=== PATIENT | male | born 1945 | race Hispanic/Latino ===

== ENCOUNTER → 2022-03-14 | Outpatient (CLI) | payer OTHER | END | disposition home or self-care (01) | LOC: RAH 09:54 | PROVIDERS: ATTEND Internal Medicine Cardiovascular Disease | DX: Z13.6 Encounter for screening for cardiovascular disorders (principal); I51.5 Myocardial degeneration | CPT/HCPCS: 75571 ==

== ENCOUNTER → 2022-04-02 | Outpatient (CLI) | payer OTHER ==
[~2022-04-02] VITALS: Ht 177.8 cm; Wt 101.2 kg
[~2022-04-02] MED LIST: REGADENOSON 0.4 MG/5 ML PF SYG IVP SCH
== END | disposition home or self-care (01) ==
LOC: SHCH 09:25
PROVIDERS: ATTEND Internal Medicine Cardiovascular Disease
DX: I49.1 Atrial premature depolarization (principal); R07.9 Chest pain, unspecified
CPT/HCPCS: 78452; 93017; 96374; A9500 ×2; J2785

== ENCOUNTER → 2022-05-03 | Outpatient (CLI) | payer OTHER ==
[~2022-05-03] MED LIST changes: +IOHEXOL 350 MG/ML 100ML INFUS..BTL IV ONE; +IOHEXOL-350 50ML VIAL IV ONE; -REGADENOSON 0.4 MG/5 ML PF SYG IVP SCH
== END | disposition home or self-care (01) ==
LOC: RAH 09:43 → EDUNIT# 05-10 10:00
PROVIDERS: ATTEND Internal Medicine Cardiovascular Disease
DX: I70.1 Atherosclerosis of renal artery (principal); I70.203 Unspecified atherosclerosis of native arteries of extremities, bilateral legs; I70.0 Atherosclerosis of aorta; I70.8 Atherosclerosis of other arteries
CPT/HCPCS: 75635; Q9967 ×2

== ENCOUNTER 2022-06-18 08:59 | Inpatient (IN) | payer OTHER ==
[2022-06-14 11:29] LABS: BASOPHILS % (AUTO) 0.6 % (0.0-5.0); EOSINOPHILS % (AUTO) 2.2 % (0.0-8.0); HEMATOCRIT 42.1 % (42-54); LYMPHOCYTES % (AUTO) 19.9 % (21.0-51.0); MEAN CORPUSCULAR HEMOGLOBIN 30.9 pg (27.0-33.0); MEAN CORPUSCULAR HGB CONC 33.7 g/dL (32.0-36.0); MEAN CORPUSCULAR VOLUME 91.7 fL (79-99); NEUTROPHILS % (AUTO) 68.8 % (40.0-77.0); PLATELET COUNT (AUTO) 303 K/uL (130-400); RED BLOOD CELL COUNT(AUTO) 4.59 MIL/uL (4.50-6.20); RED CELL DISTRIBUTION WIDTH 12.5 % (11.0-15.5); WHITE BLOOD COUNT (AUTO) 8.1 K/uL (4.8-10.8)
[2022-06-14 11:45] LABS: CREATININE 1.4 mg/dL (0.5-1.5); POTASSIUM 4.3 mmol/L (3.5-5.1)
[2022-06-14 12:08] LABS: INR 0.97 (0.85-1.15); PROTHROMBIN TIME 10.6 SEC (9.6-11.6)
[2022-06-14 12:09] LABS: PARTIAL THROMBOPLASTIN TIME 27.9 SEC (26.3-35.5)
[2022-06-14 12:14] LABS: APPEARANCE,URINE CLEAR (CLEAR); BILIRUBIN,URINE NEGATIVE (NEGATIVE); COLOR,URINE YELLOW (YELLOW); GLUCOSE, URINE (UA) NEGATIVE (NEGATIVE); KETONES,URINE NEGATIVE (NEGATIVE); LEUKOCYTE ESTERASE ,URINE NEGATIVE (NEGATIVE); NITRATE,URINE NEGATIVE (NEGATIVE); OCCULT BLOOD,URINE NEGATIVE (NEGATIVE); PROTEIN,URINE NEGATIVE (NEGATIVE); UROBILINOGEN,URINE 0.2 mg/dL (0.2-1.0)
[2022-06-14 12:47] LABS: B-TYPE NATRIURETIC PEPTIDE 30 pg/mL (0-100)
[2022-06-15 13:20] VITALS: BP 136/67
[2022-06-18] VITALS (10 sets, daily range): BP systolic 109–130; BP diastolic 64–86
[~2022-06-18] VITALS: Ht 182.9 cm; Wt 95.3 kg
[~2022-06-18 08:59] MED LIST changes: +0.9%NACL 1000ML 1,000 ML IV SCH; +AMLO-258 PO; +CILO100T PO; +CINAMMON PO; +FISH12002 PO; +GLIP10TA9 PO; +INSU100V52 SQ; -IOHEXOL 350 MG/ML 100ML INFUS..BTL IV ONE; -IOHEXOL-350 50ML VIAL IV ONE; +LEVO75TA10 PO; +LOSA100T58 PO; +METF-446 PO; +METO-408 PO; +MV-M1TAB20 PO; +SPIR1TAB4 PO; +TIME SLEEP AID PO
[2022-06-18] MEDS ORDERED: DEXTROSE 50%-WATER 50 ML DISP.SYRIN IV ONE (09:26)
[2022-06-18] MEDS ORDERED: DEXTROSE 5 %-0.45 % NACL 1,000 ML IV SCH (10:00)
[2022-06-18] MEDS ORDERED: LIDOCAINE HCL 1% 20 ML VIAL ONE (13:58)
[2022-06-18] MEDS ORDERED: NITROGLYCERIN 50MG VIAL ONE (13:59)
[2022-06-18] MEDS ORDERED: HEPARIN 10,000 UNIT/10ML (1,000 UNIT/ML) VIAL ONE (13:59)
[2022-06-18] MEDS ORDERED: SODIUM BICARB 50MEQ 50ML VIAL 50 ML ONE (13:59)
[2022-06-18] MEDS ORDERED: IOHEXOL 350 MG/ML 100ML INFUS..BTL IV ONE (13:59)
[2022-06-18] MEDS ORDERED: MIDAZOLAM HCL 1 MG/ML 2ML VIAL ONE ×2 (14:17→14:27)
[2022-06-18] MEDS ORDERED: MEPERIDINE-PF 25 MG/ML SYG ONE ×2 (14:17→14:27)
[2022-06-18] MEDS ORDERED: 0.9%NACL 1000ML 1,000 ML IV SCH (15:00)
[2022-06-18 17:53] LABS: ABG BASE EXCESS 1.8 mmol/L (-2.0-3.0); ABG HCO3 25.5 mmol/L (21.0-28.0); ABG OXYGEN SATURATION 96.5 % (95.0-99.0); ABG PCO2 37 mmHg (35-48)
[2022-06-18] MEDS ORDERED: CLONIDINE HCL 0.1 MG TABLET PO PRN (21:30)
[2022-06-18] MEDS ORDERED: HYDRALAZINE 20MG/ML VIAL IV PRN (21:30)
[2022-06-18] MEDS ORDERED: GLUCAGON 1MG KIT 1 MG ML IM PRN (21:30)
[2022-06-18] MEDS ORDERED: MAGNESIUM 2GM PREMIX 50ML 50 ML IV PRN (21:30)
[2022-06-18] MEDS ORDERED: DOCUSATE SODIUM 100 MG CAP PO PRN (21:30)
[2022-06-18] MEDS ORDERED: LACTULOSE 20 GM/30 ML UDCUP PO PRN (21:30)
[2022-06-18] MEDS ORDERED: LABETALOL 20MG SYG IV PRN (21:30)
[2022-06-18] MEDS ORDERED: ACETAMINOPHEN 650 MG SUPPOSITORY RC PRN (21:30)
[2022-06-18] MEDS ORDERED: ONDANSETRON 4MG INJ IVP PRN (21:30)
[2022-06-18] MEDS ORDERED: ACETAMINOPHEN 325 MG TAB PO PRN (21:30)
[2022-06-18] MEDS ORDERED: DEXTROSE 50%-WATER 50 ML DISP.SYRIN IV PRN (21:30)
[2022-06-19 03:38] LABS: MEAN CORPUSCULAR HEMOGLOBIN 30.8 pg (27.0-33.0); MEAN CORPUSCULAR HGB CONC 34.1 g/dL (32.0-36.0); MEAN CORPUSCULAR VOLUME 90.3 fL (79-99); RED BLOOD CELL COUNT(AUTO) 4.32 MIL/uL (4.50-6.20); RED CELL DISTRIBUTION WIDTH 12.3 % (11.0-15.5); WHITE BLOOD COUNT (AUTO) 8.3 K/uL (4.8-10.8)
[2022-06-19 03:41] LABS: CREATININE 1.2 mg/dL (0.5-1.5); HEMOGLOBIN A1C 6.5 % (4.0-6.0); POTASSIUM 3.5 mmol/L (3.5-5.1)
[2022-06-19 03:49] LABS: TOTAL PROTEIN, SERUM 6.6 g/dL (6.0-8.3)
[2022-06-19 03:52] VITALS: BP 112/48
[2022-06-19 03:54] LABS: INR 0.95 (0.85-1.15); PROTHROMBIN TIME 10.4 SEC (9.6-11.6)
[2022-06-19 03:55] LABS: PARTIAL THROMBOPLASTIN TIME 27.5 SEC (26.3-35.5)
[2022-06-19] MEDS: LEVOTHYROXINE 75 MCG TABLET PO SCH (05:30)
[2022-06-19] MEDS ORDERED: INSULIN HUMULIN R 100 UNIT/ML 3ML SQ SCH (07:30)
[2022-06-19 08:30] VITALS: BP 130/66
[2022-06-19 08:40] VITALS: BP 121/57
[2022-06-19 12:11] VITALS: BP 132/76
[2022-06-19] MEDS ORDERED: CEFAZOLIN SODIUM 1 GM VIAL IVP SCH (13:00)
[2022-06-19 17:16] VITALS: BP 134/77
[2022-06-19 20:08] VITALS: BP 130/75
[2022-06-19] MEDS ORDERED: FAMOTIDINE 20MG VIAL IV SCH (21:00)
[2022-06-20] VITALS (45 sets, daily range): BP systolic 59–189; BP diastolic 42–87
[2022-06-20 04:23] LABS: BASOPHILS % (AUTO) 0.6 % (0.0-5.0); EOSINOPHILS % (AUTO) 1.7 % (0.0-8.0); HEMATOCRIT 43.9 % (42-54); LYMPHOCYTES % (AUTO) 27.8 % (21.0-51.0); MEAN CORPUSCULAR HEMOGLOBIN 30.8 pg (27.0-33.0); MEAN CORPUSCULAR HGB CONC 33.7 g/dL (32.0-36.0); MEAN CORPUSCULAR VOLUME 91.5 fL (79-99); MONOCYTES % (AUTO) 10.1 % (3.0-13.0); NEUTROPHILS % (AUTO) 59.5 % (40.0-77.0); PLATELET COUNT (AUTO) 262 K/uL (130-400); RED CELL DISTRIBUTION WIDTH 12.3 % (11.0-15.5); WHITE BLOOD COUNT (AUTO) 6.9 K/uL (4.8-10.8)
[2022-06-20 04:47] LABS: ALBUMIN 3.3 g/dL (3.5-5.0); POTASSIUM 3.8 mmol/L (3.5-5.1); TOTAL PROTEIN, SERUM 7.3 g/dL (6.0-8.3)
[2022-06-20] MEDS: LEVOTHYROXINE 75 MCG TABLET PO SCH (05:07)
[2022-06-20] MEDS ORDERED: EPINEPHRINE PF 1MG (1:1,000) 10 MG in 0.9% NACL 250ML 240 ML IV PRN ×2 (07:30→14:00)
[2022-06-20] MEDS ORDERED: AMINOCAPROIC ACID 5,000MG VIAL 15,000 MG in 0.9% NACL 500ML IV.SOLN 420 ML IV PRN (07:30)
[2022-06-20] MEDS ORDERED: NOREPINEPHRINE BITARTRATE 8 MG in DEXTROSE 5%-WATER 250 ML IV PRN (07:30)
[2022-06-20] MEDS ORDERED: METOPROLOL SUCCINATE 25 MG TAB.SR.24H PO SCH (09:00)
[2022-06-20] MEDS ORDERED: HYDROCHLOROTHIAZIDE 25 MG TABLET PO SCH (09:00)
[2022-06-20] MEDS ORDERED: AMLODIPINE 5 MG TAB PO SCH (09:00)
[2022-06-20] MEDS ORDERED: SPIRONOLACTONE 25 MG TAB PO SCH (09:00)
[2022-06-20] MEDS: FISH OIL 1000 MG/CAP PO SCH (09:00)
[2022-06-20] MEDS ORDERED: NITROGLYCERIN 50MG/D5W 250ML 1 BOT ONE (09:10)
[2022-06-20] MEDS ORDERED: SODIUM BICARB 50MEQ 50ML VIAL 150 ML ONE (09:20)
[2022-06-20] MEDS ORDERED: EPINEPHRINE PF 1MG (1:1,000) 1 MG/ML AMP ONE (09:20)
[2022-06-20] MEDS ORDERED: LIDOCAINE PF 100MG/5ML (2%) SYRINGE 5ML ONE (09:20)
[2022-06-20] MEDS ORDERED: PROTAMINE SULFATE 10 MG/ML 25ML VIAL IV ONE (09:20)
[2022-06-20] MEDS ORDERED: AMINOCAPROIC ACID 5,000MG VIAL ONE (09:20)
[2022-06-20] MEDS ORDERED: NOREPINEPHRINE BITARTRATE 1 MG/1 ML ML IV ONE (09:20)
[2022-06-20] MEDS ORDERED: ESMOLOL HCL 10 MG/ML 10 ML VIAL ONE (09:20)
[2022-06-20] MEDS ORDERED: HEPARIN 10,000 UNIT/10ML (1,000 UNIT/ML) VIAL ONE (09:20)
[2022-06-20] MEDS ORDERED: FENTANYL CITRATE PF 50 MCG/1 ML 20ML VIAL IJ ONE (09:21)
[2022-06-20] MEDS ORDERED: PROPOFOL 10 MG/ML 20ML VIAL IV ONE (09:21)
[2022-06-20] MEDS ORDERED: ROCURONIUM 10MG/1ML SYR 10 MG/ML ML ONE (09:21)
[2022-06-20] MEDS ORDERED: MIDAZOLAM HCL 1 MG/ML 2ML VIAL ONE (09:21)
[2022-06-20] MEDS ORDERED: KETAMINE 50MG/ML SYRINGE 50 MG/ML DISP.SYRIN IV ONE (09:23)
[2022-06-20] MEDS ORDERED: CEFAZOLIN SODIUM 1 GM VIAL ONE ×2 (09:59→10:14)
[2022-06-20] MEDS ORDERED: AMIODARONE 150MG VIAL ONE (10:11)
[2022-06-20] MEDS ORDERED: PAPAVERINE HCL 30 MG/ML 2ML VIAL ONE (10:14)
[2022-06-20 10:41] LABS: ABG BASE EXCESS -1.3 mmol/L (-2.0-3.0); ABG HCO3 24.1 mmol/L (21.0-28.0); ABG OXYGEN SATURATION 99.5 % (95.0-99.0); ABG PCO2 43 mmHg (35-48)
[2022-06-20 12:23] LABS: ABG BASE EXCESS -6.6 mmol/L (-2.0-3.0); ABG HCO3 18.6 mmol/L (21.0-28.0); ABG PCO2 36 mmHg (35-48)
[2022-06-20] MEDS ORDERED: SODIUM BICARB 50MEQ 50ML VIAL 50 ML ONE ×5 (13:24→13:29)
[2022-06-20] MEDS ORDERED: ALBUMIN (HUMAN) 5% 250 ML IV ONE ×2 (13:25)
[2022-06-20 13:33] LABS: ABG BASE EXCESS -1.9 mmol/L (-2.0-3.0); ABG HCO3 23.2 mmol/L (21.0-28.0); ABG OXYGEN SATURATION 99.1 % (95.0-99.0); ABG PCO2 41 mmHg (35-48)
[2022-06-20] MEDS ORDERED: 0.9%NACL 1000ML 1,000 ML IV SCH (14:00)
[2022-06-20] MEDS ORDERED: AMINOCAPROIC ACID 5,000MG VIAL 15,000 MG in 0.9% NACL 250ML 250 ML IV SCH (14:00)
[2022-06-20] MEDS ORDERED: 0.9%NACL 10ML VIAL IVP PRN (14:00)
[2022-06-20] MEDS ORDERED: ACETAMINOPHEN 325 MG TAB PO PRN (14:00)
[2022-06-20] MEDS ORDERED: ALBUMIN (HUMAN) 5% 250 ML IV PRN (14:00)
[2022-06-20] MEDS ORDERED: GLUCAGON 1MG KIT 1 MG ML IM PRN (14:00)
[2022-06-20] MEDS ORDERED: 0.9% NACL 500ML IV.SOLN 500 ML IV SCH (14:00)
[2022-06-20] MEDS ORDERED: NOREPINEPHRIN 4MG/NS 250ML 250 ML IV PRN (14:00)
[2022-06-20] MEDS ORDERED: DEXTROSE 50%-WATER 50 ML DISP.SYRIN IV PRN (14:00)
[2022-06-20] MEDS ORDERED: MORPHINE 4 MG SYG IV PRN (14:00)
[2022-06-20] MEDS ORDERED: POTASSIUM PHOS 15 mMOL+NS250ML 250 ML IV PRN (14:00)
[2022-06-20] MEDS ORDERED: MORPHINE 2 MG SYG IV PRN (14:00)
[2022-06-20] MEDS ORDERED: ACETAMINOPHEN 650 MG SUPPOSITORY RC PRN (14:00)
[2022-06-20] MEDS ORDERED: PROPOFOL 1000 MG/100 ML 100 ML IV PRN (14:00)
[2022-06-20] MEDS ORDERED: NITROGLYCERIN 50MG/D5W 250ML 250 BOT IV SCH (14:00)
[2022-06-20 14:29] LABS: HEMATOCRIT 36.7 % (42-54); MEAN CORPUSCULAR HEMOGLOBIN 31.3 pg (27.0-33.0); MEAN CORPUSCULAR HGB CONC 33.8 g/dL (32.0-36.0); MEAN CORPUSCULAR VOLUME 92.7 fL (79-99); RED BLOOD CELL COUNT(AUTO) 3.96 MIL/uL (4.50-6.20); RED CELL DISTRIBUTION WIDTH 12.5 % (11.0-15.5); WHITE BLOOD COUNT (AUTO) 23.5 K/uL (4.8-10.8)
[2022-06-20 14:34] LABS: ABG BASE EXCESS -6.3 mmol/L (-2.0-3.0); ABG OXYGEN SATURATION 96.5 % (95.0-99.0); ABG PCO2 42 mmHg (35-48)
[2022-06-20 14:40] LABS: CREATININE 1.2 mg/dL (0.5-1.5); INR 1.12 (0.85-1.15); MAGNESIUM 1.4 mg/dL (1.80-2.40); PHOSPHORUS 4.1 mg/dL (2.5-4.9); POTASSIUM 3.4 mmol/L (3.5-5.1); PROTHROMBIN TIME 12.1 SEC (9.6-11.6)
[2022-06-20 14:41] LABS: PARTIAL THROMBOPLASTIN TIME 26.2 SEC (26.3-35.5)
[2022-06-20] MEDS: POTASSIUM CHLORIDE 20MEQ/100ML 100 ML IV PRN ×7 (15:09→20:26)
[2022-06-20] MEDS: SODIUM BICARB 50MEQ 50ML VIAL IV PRN ×6 (15:10→18:27)
[2022-06-20] MEDS: INSULIN REGULAR, HUMAN 3ML 100 UNIT in 0.9%NACL 100ML 99 ML IV SCH ×2 (15:14)
[2022-06-20] MEDS: MAGNESIUM 2GM PREMIX 50ML 50 ML IV PRN ×2 (15:18→18:38)
[2022-06-20 15:26] LABS: ABG BASE EXCESS -1.3 mmol/L (-2.0-3.0); ABG HCO3 24.1 mmol/L (21.0-28.0); ABG OXYGEN SATURATION 95.6 % (95.0-99.0); ABG PCO2 43 mmHg (35-48)
[2022-06-20 16:28] LABS: ABG BASE EXCESS -2.3 mmol/L (-2.0-3.0); ABG HCO3 23.5 mmol/L (21.0-28.0); ABG OXYGEN SATURATION 95.1 % (95.0-99.0); ABG PCO2 44 mmHg (35-48)
[2022-06-20] MEDS ORDERED: ASPIRIN 81MG CHEW TAB NG ONE (17:00)
[2022-06-20 17:25] LABS: ABG HCO3 24.4 mmol/L (21.0-28.0); ABG OXYGEN SATURATION 95.9 % (95.0-99.0); ABG PCO2 43 mmHg (35-48)
[2022-06-20] MEDS: CALCIUM GLUC 1GM 1 GM in 0.9%NACL 50ML 50 ML IV PRN ×2 (17:43→18:24)
[2022-06-20] MEDS: CEFAZOLIN SODIUM 1 GM VIAL IV SCH (18:13)
[2022-06-20 18:23] LABS: ABG BASE EXCESS -1.4 mmol/L (-2.0-3.0); ABG PCO2 43 mmHg (35-48)
[2022-06-20 18:57] LABS: ABG BASE EXCESS 0.1 mmol/L (-2.0-3.0); ABG HCO3 25.4 mmol/L (21.0-28.0); ABG PCO2 44 mmHg (35-48)
[2022-06-20] MEDS: ATORVASTATIN 40 MG TABLET PO SCH (20:05)
[2022-06-20] MEDS: TRAMADOL HCL 50 MG TABLET PO PRN ×2 (20:06→20:18)
[2022-06-20 20:13] LABS: ABG BASE EXCESS 1.1 mmol/L (-2.0-3.0); ABG HCO3 27.1 mmol/L (21.0-28.0); ABG OXYGEN SATURATION 93.8 % (95.0-99.0); ABG PCO2 48 mmHg (35-48)
[2022-06-20] MEDS: FAMOTIDINE 20MG TAB PO SCH (20:26)
[2022-06-20] MEDS ORDERED: LOSARTAN 100 MG TABLET PO SCH (21:00)
[2022-06-20] MEDS ORDERED: FAMOTIDINE 20MG VIAL IV SCH (21:00)
[2022-06-20] MEDS ORDERED: KETOROLAC 30MG VIAL (30MG/ML) ONE (21:23)
[2022-06-20] MEDS ORDERED: KETOROLAC 30MG VIAL (30MG/ML) IM PRN (22:00)
[2022-06-20] MEDS: ONDANSETRON 4MG INJ IV PRN (23:11)
[2022-06-21] VITALS (94 sets, daily range): BP systolic 39–185; BP diastolic 45–247
[2022-06-21 00:54] LABS: ABG BASE EXCESS 7.5 mmol/L (-2.0-3.0); ABG HCO3 33.2 mmol/L (21.0-28.0); ABG OXYGEN SATURATION 94.5 % (95.0-99.0); ABG PCO2 52 mmHg (35-48)
[2022-06-21] MEDS: CEFAZOLIN SODIUM 1 GM VIAL IV SCH ×2 (02:13→10:16)
[2022-06-21] MEDS: POTASSIUM CHLORIDE 20MEQ/100ML 100 ML IV PRN (02:14)
[2022-06-21] MEDS ORDERED: KETOROLAC 30MG VIAL (30MG/ML) IV PRN (04:00)
[2022-06-21 04:19] LABS: HEMATOCRIT 36.1 % (42-54); MEAN CORPUSCULAR HEMOGLOBIN 30.8 pg (27.0-33.0); MEAN CORPUSCULAR HGB CONC 33.2 g/dL (32.0-36.0); MEAN CORPUSCULAR VOLUME 92.8 fL (79-99); RED BLOOD CELL COUNT(AUTO) 3.89 MIL/uL (4.50-6.20); RED CELL DISTRIBUTION WIDTH 12.9 % (11.0-15.5); WHITE BLOOD COUNT (AUTO) 12.7 K/uL (4.8-10.8)
[2022-06-21 04:28] LABS: PROTHROMBIN TIME 10.9 SEC (9.6-11.6)
[2022-06-21 04:30] LABS: PARTIAL THROMBOPLASTIN TIME 25.9 SEC (26.3-35.5)
[2022-06-21 04:36] LABS: CREATININE 1.1 mg/dL (0.5-1.5); MAGNESIUM 2.1 mg/dL (1.80-2.40); PHOSPHORUS 3.8 mg/dL (2.5-4.9); POTASSIUM 4.5 mmol/L (3.5-5.1)
[2022-06-21 06:23] LABS: ABG BASE EXCESS 3.6 mmol/L (-2.0-3.0); ABG HCO3 29.4 mmol/L (21.0-28.0); ABG OXYGEN SATURATION 93.6 % (95.0-99.0); ABG PCO2 49 mmHg (35-48)
[2022-06-21] MEDS: ONDANSETRON 4MG INJ IV PRN ×2 (07:33→15:30)
[2022-06-21] MEDS: LEVOTHYROXINE 75 MCG TABLET PO SCH (08:17)
[2022-06-21] MEDS: FISH OIL 1000 MG/CAP PO SCH (08:17)
[2022-06-21] MEDS: FUROSEMIDE 20MG VIAL IV SCH ×2 (08:17→20:24)
[2022-06-21] MEDS: ASPIRIN 81 MG EC TAB PO SCH (08:17)
[2022-06-21] MEDS: FAMOTIDINE 20MG TAB PO SCH ×2 (08:17→20:24)
[2022-06-21] MEDS: TRAMADOL HCL 50 MG TABLET PO PRN ×2 (10:15→20:43)
[2022-06-21] MEDS ORDERED: AMLODIPINE 5 MG TAB PO SCH (16:00)
[2022-06-21] MEDS: INSULIN REGULAR, HUMAN 3ML 100 UNIT in 0.9%NACL 100ML 99 ML IV SCH ×2 (17:55)
[2022-06-21] MEDS: ATORVASTATIN 40 MG TABLET PO SCH (20:24)
[2022-06-22] VITALS (57 sets, daily range): BP systolic 94–188; BP diastolic 48–84
[2022-06-22] MEDS: LEVOTHYROXINE 75 MCG TABLET PO SCH (06:15)
[2022-06-22 06:33] LABS: HEMATOCRIT 34.9 % (42-54); MEAN CORPUSCULAR HEMOGLOBIN 31.5 pg (27.0-33.0); MEAN CORPUSCULAR VOLUME 95.6 fL (79-99); RED BLOOD CELL COUNT(AUTO) 3.65 MIL/uL (4.50-6.20); RED CELL DISTRIBUTION WIDTH 13.1 % (11.0-15.5); WHITE BLOOD COUNT (AUTO) 13.1 K/uL (4.8-10.8)
[2022-06-22 06:44] LABS: POTASSIUM 3.5 mmol/L (3.5-5.1)
[2022-06-22] MEDS ORDERED: AMLODIPINE 5 MG TAB PO SCH (09:00)
[2022-06-22] MEDS ORDERED: METOPROLOL TARTRATE 25 MG TAB PO SCH (09:00)
[2022-06-22] MEDS: AMLODIPINE 5 MG TAB PO SCH (09:00)
[2022-06-22] MEDS: FISH OIL 1000 MG/CAP PO SCH (09:35)
[2022-06-22] MEDS: FUROSEMIDE 20 MG TABLET PO SCH ×2 (09:35→18:02)
[2022-06-22] MEDS: ASPIRIN 81 MG EC TAB PO SCH (09:35)
[2022-06-22] MEDS: FAMOTIDINE 20MG TAB PO SCH ×2 (09:35→20:25)
[2022-06-22] MEDS: POTASSIUM CHLORIDE 20MEQ/100ML 100 ML IV PRN (18:04)
[2022-06-22] MEDS: ATORVASTATIN 40 MG TABLET PO SCH (20:24)
[2022-06-23] VITALS (24 sets, daily range): BP systolic 50–157; BP diastolic 33–87
[2022-06-23 05:13] LABS: HEMATOCRIT 38.2 % (42-54); MEAN CORPUSCULAR HGB CONC 33.5 g/dL (32.0-36.0); MEAN CORPUSCULAR VOLUME 92.5 fL (79-99); RED BLOOD CELL COUNT(AUTO) 4.13 MIL/uL (4.50-6.20); RED CELL DISTRIBUTION WIDTH 12.5 % (11.0-15.5); WHITE BLOOD COUNT (AUTO) 10.6 K/uL (4.8-10.8)
[2022-06-23 05:36] LABS: CREATININE 0.9 mg/dL (0.5-1.5); POTASSIUM 4.2 mmol/L (3.5-5.1)
[2022-06-23] MEDS: LEVOTHYROXINE 75 MCG TABLET PO SCH (07:10)
[2022-06-23] MEDS: ENOXAPARIN SODIUM 30 MG/0.3 ML SQ SCH (08:35)
[2022-06-23] MEDS: ASPIRIN 81 MG EC TAB PO SCH (08:35)
[2022-06-23] MEDS: FAMOTIDINE 20MG TAB PO SCH ×2 (08:35→20:51)
[2022-06-23] MEDS: AMLODIPINE 5 MG TAB PO SCH (08:35)
[2022-06-23] MEDS: FISH OIL 1000 MG/CAP PO SCH (08:35)
[2022-06-23] MEDS: FUROSEMIDE 20 MG TABLET PO SCH ×2 (08:35→16:35)
[2022-06-23] MEDS ORDERED: POLYETHYLENE GLYCOL 3350 17 GM POWD.PACK PO SCH (10:30)
[2022-06-23] MEDS: INSULIN HUMULIN R 100 UNIT/ML 3ML SQ SCH ×2 (16:30→20:52)
[2022-06-23] MEDS: ATORVASTATIN 40 MG TABLET PO SCH (20:51)
[2022-06-24] VITALS (14 sets, daily range): BP systolic 108–160; BP diastolic 55–78
[2022-06-24 04:24] LABS: BASOPHILS % (AUTO) 0.4 % (0.0-5.0); EOSINOPHILS % (AUTO) 1.6 % (0.0-8.0); HEMATOCRIT 38.6 % (42-54); LYMPHOCYTES % (AUTO) 24.9 % (21.0-51.0); MEAN CORPUSCULAR HEMOGLOBIN 31.2 pg (27.0-33.0); MEAN CORPUSCULAR HGB CONC 34.5 g/dL (32.0-36.0); MEAN CORPUSCULAR VOLUME 90.6 fL (79-99); MONOCYTES % (AUTO) 8.9 % (3.0-13.0); NEUTROPHILS % (AUTO) 63.6 % (40.0-77.0); PLATELET COUNT (AUTO) 249 K/uL (130-400); RED BLOOD CELL COUNT(AUTO) 4.26 MIL/uL (4.50-6.20); RED CELL DISTRIBUTION WIDTH 12.2 % (11.0-15.5); WHITE BLOOD COUNT (AUTO) 8.1 K/uL (4.8-10.8)
[2022-06-24 04:40] LABS: ALBUMIN 2.6 g/dL (3.5-5.0); POTASSIUM 3.2 mmol/L (3.5-5.1); TOTAL PROTEIN, SERUM 6.5 g/dL (6.0-8.3)
[2022-06-24] MEDS: POTASSIUM CHLORIDE 20MEQ/100ML 100 ML IV PRN ×2 (05:13→06:41)
[2022-06-24] MEDS: LEVOTHYROXINE 75 MCG TABLET PO SCH (05:20)
[2022-06-24] MEDS: INSULIN HUMULIN R 100 UNIT/ML 3ML SQ SCH ×4 (07:30→21:35)
[2022-06-24] MEDS: AMLODIPINE 5 MG TAB PO SCH (08:56)
[2022-06-24] MEDS: FISH OIL 1000 MG/CAP PO SCH (08:56)
[2022-06-24] MEDS: ASPIRIN 81 MG EC TAB PO SCH (08:56)
[2022-06-24] MEDS: LOSARTAN 25 MG TABLET PO SCH (08:56)
[2022-06-24] MEDS: FUROSEMIDE 20 MG TABLET PO SCH ×2 (08:56→18:03)
[2022-06-24] MEDS: FAMOTIDINE 20MG TAB PO SCH ×2 (08:56→21:20)
[2022-06-24] MEDS: ENOXAPARIN SODIUM 30 MG/0.3 ML SQ SCH (08:57)
[2022-06-24] MEDS ORDERED: CARVEDILOL 3.125 MG TABLET PO SCH (09:00)
[2022-06-24] MEDS: ATORVASTATIN 40 MG TABLET PO SCH (21:20)
[2022-06-24] MEDS: TRAMADOL HCL 50 MG TABLET PO PRN (21:21)
[2022-06-24] MEDS: LACTULOSE 20 GM/30 ML UDCUP PO PRN (21:26)
[2022-06-25 03:26] VITALS: BP 145/71
[2022-06-25 03:28] LABS: BASOPHILS % (AUTO) 0.4 % (0.0-5.0); EOSINOPHILS % (AUTO) 3.2 % (0.0-8.0); HEMATOCRIT 37.1 % (42-54); LYMPHOCYTES % (AUTO) 26.5 % (21.0-51.0); MEAN CORPUSCULAR HEMOGLOBIN 30.8 pg (27.0-33.0); MEAN CORPUSCULAR HGB CONC 33.4 g/dL (32.0-36.0); MEAN CORPUSCULAR VOLUME 92.3 fL (79-99); MONOCYTES % (AUTO) 11.1 % (3.0-13.0); NEUTROPHILS % (AUTO) 57.8 % (40.0-77.0); PLATELET COUNT (AUTO) 255 K/uL (130-400); RED BLOOD CELL COUNT(AUTO) 4.02 MIL/uL (4.50-6.20); RED CELL DISTRIBUTION WIDTH 12.4 % (11.0-15.5); WHITE BLOOD COUNT (AUTO) 7.7 K/uL (4.8-10.8)
[2022-06-25 03:49] LABS: ALBUMIN 2.4 g/dL (3.5-5.0); CREATININE 0.9 mg/dL (0.5-1.5); POTASSIUM 3.6 mmol/L (3.5-5.1); TOTAL PROTEIN, SERUM 6.1 g/dL (6.0-8.3)
[2022-06-25] MEDS ORDERED: POTASSIUM CHLORIDE 10% ELIXIR 20 MEQ/15 ML UDCUP PO PRN (04:00)
[2022-06-25] MEDS: LEVOTHYROXINE 75 MCG TABLET PO SCH (05:56)
[2022-06-25] MEDS: KCL 20 MEQ ERTAB PO PRN ×2 (05:56→09:41)
[2022-06-25] MEDS: INSULIN HUMULIN R 100 UNIT/ML 3ML SQ SCH ×4 (05:57→21:00)
[2022-06-25 07:39] VITALS: BP 105/64
[2022-06-25] MEDS: LOSARTAN 25 MG TABLET PO SCH (09:00)
[2022-06-25] MEDS: FAMOTIDINE 20MG TAB PO SCH ×2 (09:38→20:36)
[2022-06-25] MEDS: AMLODIPINE 5 MG TAB PO SCH (09:39)
[2022-06-25] MEDS: ASPIRIN 81 MG EC TAB PO SCH (09:39)
[2022-06-25] MEDS: ENOXAPARIN SODIUM 30 MG/0.3 ML SQ SCH (09:39)
[2022-06-25] MEDS: FUROSEMIDE 20 MG TABLET PO SCH ×2 (09:39→17:48)
[2022-06-25] MEDS: FISH OIL 1000 MG/CAP PO SCH (09:39)
[2022-06-25] MEDS: LACTULOSE 20 GM/30 ML UDCUP PO PRN (10:08)
[2022-06-25 11:42] VITALS: BP 111/68
[2022-06-25 15:31] VITALS: BP 107/65
[2022-06-25 19:23] VITALS: BP 134/74
[2022-06-25] MEDS: ATORVASTATIN 40 MG TABLET PO SCH (20:36)
[2022-06-26] VITALS (7 sets, daily range): BP systolic 114–146; BP diastolic 62–80
[2022-06-26 04:25] LABS: BASOPHILS % (AUTO) 0.4 % (0.0-5.0); EOSINOPHILS % (AUTO) 3.7 % (0.0-8.0); HEMATOCRIT 38.4 % (42-54); LYMPHOCYTES % (AUTO) 22.9 % (21.0-51.0); MEAN CORPUSCULAR HGB CONC 33.9 g/dL (32.0-36.0); MEAN CORPUSCULAR VOLUME 91.4 fL (79-99); MONOCYTES % (AUTO) 10.2 % (3.0-13.0); NEUTROPHILS % (AUTO) 61.1 % (40.0-77.0); PLATELET COUNT (AUTO) 280 K/uL (130-400); RED CELL DISTRIBUTION WIDTH 12.4 % (11.0-15.5); WHITE BLOOD COUNT (AUTO) 9.4 K/uL (4.8-10.8)
[2022-06-26 04:43] LABS: ALBUMIN 2.5 g/dL (3.5-5.0); POTASSIUM 3.9 mmol/L (3.5-5.1); TOTAL PROTEIN, SERUM 6.4 g/dL (6.0-8.3)
[2022-06-26] MEDS: LEVOTHYROXINE 75 MCG TABLET PO SCH (06:16)
[2022-06-26] MEDS: INSULIN HUMULIN R 100 UNIT/ML 3ML SQ SCH ×4 (06:37→20:44)
[2022-06-26] MEDS: FISH OIL 1000 MG/CAP PO SCH (08:03)
[2022-06-26] MEDS: FAMOTIDINE 20MG TAB PO SCH ×2 (08:03→20:40)
[2022-06-26] MEDS: ASPIRIN 81 MG EC TAB PO SCH (08:03)
[2022-06-26] MEDS: LOSARTAN 25 MG TABLET PO SCH (08:03)
[2022-06-26] MEDS: AMLODIPINE 5 MG TAB PO SCH (08:03)
[2022-06-26] MEDS: ENOXAPARIN SODIUM 30 MG/0.3 ML SQ SCH (08:04)
[2022-06-26] MEDS: ATORVASTATIN 40 MG TABLET PO SCH (20:40)
[2022-06-26] MEDS: METOPROLOL TARTRATE 25 MG TAB PO SCH (20:41)
[2022-06-26] MEDS ORDERED: APIXABAN 5 MG TABLET PO SCH (21:00)
[2022-06-27 03:00] VITALS: BP 127/75
[2022-06-27 04:10] LABS: HEMATOCRIT 38.4 % (42-54); MEAN CORPUSCULAR HEMOGLOBIN 30.8 pg (27.0-33.0); MEAN CORPUSCULAR HGB CONC 34.1 g/dL (32.0-36.0); MEAN CORPUSCULAR VOLUME 90.4 fL (79-99); RED BLOOD CELL COUNT(AUTO) 4.25 MIL/uL (4.50-6.20); RED CELL DISTRIBUTION WIDTH 12.4 % (11.0-15.5); WHITE BLOOD COUNT (AUTO) 8.8 K/uL (4.8-10.8)
[2022-06-27 04:40] LABS: CREATININE 0.9 mg/dL (0.5-1.5); MAGNESIUM 1.9 mg/dL (1.80-2.40); POTASSIUM 4.6 mmol/L (3.5-5.1)
[2022-06-27] MEDS: INSULIN HUMULIN R 100 UNIT/ML 3ML SQ SCH ×4 (05:36→21:18)
[2022-06-27] MEDS: LEVOTHYROXINE 75 MCG TABLET PO SCH (05:57)
[2022-06-27] MEDS: MAGNESIUM 2GM PREMIX 50ML 50 ML IV PRN ×2 (06:09→10:06)
[2022-06-27 07:00] VITALS: BP 147/74
[2022-06-27] MEDS: ASPIRIN 81 MG EC TAB PO SCH (10:07)
[2022-06-27] MEDS: LOSARTAN 25 MG TABLET PO SCH (10:07)
[2022-06-27] MEDS: AMLODIPINE 5 MG TAB PO SCH (10:07)
[2022-06-27] MEDS: FISH OIL 1000 MG/CAP PO SCH (10:07)
[2022-06-27] MEDS: FAMOTIDINE 20MG TAB PO SCH ×2 (10:07→21:17)
[2022-06-27] MEDS: METOPROLOL TARTRATE 25 MG TAB PO SCH (10:07)
[2022-06-27 11:00] VITALS: BP 123/72
[2022-06-27] MEDS ORDERED: METO25 PO (13:27)
[2022-06-27] MEDS ORDERED: AEC81 PO (13:27)
[2022-06-27] MEDS ORDERED: LOSA25TA2 PO (13:27)
[2022-06-27] MEDS ORDERED: COMPOUND PO REF 1 EA BTL MISC PRN (16:30)
[2022-06-27] MEDS ORDERED: COMPOUND PO MISCELLANEOUS 1 EACH MISC MISC PRN (18:30)
[2022-06-27 19:06] VITALS: BP 134/79
[2022-06-27 20:00] VITALS: BP 134/79
[2022-06-27] MEDS ORDERED: METOPROLOL TARTRATE 25 MG TAB PO SCH (21:00)
[2022-06-27] MEDS: ATORVASTATIN 40 MG TABLET PO SCH (21:17)
[2022-06-27] MEDS: METOPROLOL PO SCH ×3 (21:17)
[2022-06-28 00:06] VITALS: BP 133/71
[2022-06-28 03:06] VITALS: BP 141/71
[2022-06-28 05:08] LABS: HEMATOCRIT 37.2 % (42-54); MEAN CORPUSCULAR HEMOGLOBIN 31.2 pg (27.0-33.0); MEAN CORPUSCULAR HGB CONC 34.7 g/dL (32.0-36.0); MEAN CORPUSCULAR VOLUME 90.1 fL (79-99); RED BLOOD CELL COUNT(AUTO) 4.13 MIL/uL (4.50-6.20); RED CELL DISTRIBUTION WIDTH 12.5 % (11.0-15.5); WHITE BLOOD COUNT (AUTO) 7.6 K/uL (4.8-10.8)
[2022-06-28 05:39] LABS: POTASSIUM 3.3 mmol/L (3.5-5.1)
[2022-06-28] MEDS: LEVOTHYROXINE 75 MCG TABLET PO SCH (05:53)
[2022-06-28] MEDS: INSULIN HUMULIN R 100 UNIT/ML 3ML SQ SCH ×4 (05:53→22:43)
[2022-06-28] MEDS: LACTULOSE 20 GM/30 ML UDCUP PO PRN (09:28)
[2022-06-28] MEDS: LOSARTAN 25 MG TABLET PO SCH (09:28)
[2022-06-28] MEDS: AMLODIPINE 5 MG TAB PO SCH (09:28)
[2022-06-28] MEDS: KCL 20 MEQ ERTAB PO PRN ×2 (09:28→20:39)
[2022-06-28] MEDS: FISH OIL 1000 MG/CAP PO SCH (09:28)
[2022-06-28] MEDS: ASPIRIN 81 MG EC TAB PO SCH (09:28)
[2022-06-28] MEDS: FAMOTIDINE 20MG TAB PO SCH ×2 (09:28→20:39)
[2022-06-28] MEDS: METOPROLOL PO SCH ×6 (09:29→21:00)
[2022-06-28 11:14] VITALS: BP 132/70
[2022-06-28 16:00] VITALS: BP 115/61
[2022-06-28 19:06] VITALS: BP 131/68
[2022-06-28] MEDS: ATORVASTATIN 40 MG TABLET PO SCH (20:39)
[2022-06-29 00:06] VITALS: BP 119/67
[2022-06-29 03:43] LABS: HEMATOCRIT 38.9 % (42-54); MEAN CORPUSCULAR HEMOGLOBIN 30.7 pg (27.0-33.0); MEAN CORPUSCULAR HGB CONC 33.7 g/dL (32.0-36.0); MEAN CORPUSCULAR VOLUME 91.1 fL (79-99); RED BLOOD CELL COUNT(AUTO) 4.27 MIL/uL (4.50-6.20); RED CELL DISTRIBUTION WIDTH 12.8 % (11.0-15.5)
[2022-06-29 04:59] VITALS: BP 136/79
[2022-06-29] MEDS: INSULIN HUMULIN R 100 UNIT/ML 3ML SQ SCH ×2 (05:49→12:36)
[2022-06-29] MEDS: LEVOTHYROXINE 75 MCG TABLET PO SCH (06:05)
[2022-06-29 08:00] VITALS: BP 122/79
[2022-06-29] MEDS: ASPIRIN 81 MG EC TAB PO SCH (09:51)
[2022-06-29] MEDS: FISH OIL 1000 MG/CAP PO SCH (09:51)
[2022-06-29] MEDS: FAMOTIDINE 20MG TAB PO SCH (09:51)
[2022-06-29] MEDS: LOSARTAN 25 MG TABLET PO SCH (09:51)
[2022-06-29] MEDS: AMLODIPINE 5 MG TAB PO SCH (09:51)
[2022-06-29] MEDS: METOPROLOL PO SCH ×3 (09:57)
[2022-06-29 12:00] VITALS: BP 121/63
== END 2022-06-29 14:20 | disposition home or self-care (01) | DRG 233 ==
LOC: DAH 08:59 → 2AH 09:00 → 2BH 06-19 23:43 → 2AH 06-24 10:40
PROVIDERS: ADMIT Internal Medicine Critical Care Medicine; ATTEND Internal Medicine Critical Care Medicine
PROC: 4A023N7 Measurement of Cardiac Sampling and Pressure, Left Heart, Percutaneous Approach (ICD-10-PCS; 2022-06-18)
PROC: B2111ZZ Fluoroscopy of Multiple Coronary Arteries using Low Osmolar Contrast (ICD-10-PCS; 2022-06-18)
PROC: 06BQ4ZZ Excision of Left Saphenous Vein, Percutaneous Endoscopic Approach (ICD-10-PCS; 2022-06-20)
PROC: 02100Z9 Bypass Coronary Artery, One Artery from Left Internal Mammary, Open Approach (ICD-10-PCS; principal; 2022-06-20 09:36)
PROC: 0211093 Bypass Coronary Artery, Two Arteries from Coronary Artery with Autologous Venous Tissue, Open Approach (ICD-10-PCS; 2022-06-20 09:36)
DX: I25.10 Atherosclerotic heart disease of native coronary artery without angina pectoris (principal); J18.9 Pneumonia, unspecified organism; U07.1 COVID-19; N17.9 Acute kidney failure, unspecified; E11.22 Type 2 diabetes mellitus with diabetic chronic kidney disease; N18.9 Chronic kidney disease, unspecified; I12.9 Hypertensive chronic kidney disease with stage 1 through stage 4 chronic kidney disease, or unspecified chronic kidney disease; E11.649 Type 2 diabetes mellitus with hypoglycemia without coma; E03.9 Hypothyroidism, unspecified; E78.00 Pure hypercholesterolemia, unspecified; W06.XXXA Fall from bed, initial encounter; E87.70 Fluid overload, unspecified; N40.0 Benign prostatic hyperplasia without lower urinary tract symptoms; I49.8 Other specified cardiac arrhythmias; I44.1 Atrioventricular block, second degree; I48.0 Paroxysmal atrial fibrillation; Z91.19 Patient's noncompliance with other medical treatment and regimen; Z85.828 Personal history of other malignant neoplasm of skin; Z82.49 Family history of ischemic heart disease and other diseases of the circulatory system; Z79.899 Other long term (current) drug therapy; Y93.89 Activity, other specified; Y92.89 Other specified places as the place of occurrence of the external cause; Y99.8 Other external cause status
CPT/HCPCS: 36415; 36600; 70450; 71045; 80048; 80053; 80061; 81003; 82435; 82803; 82947; 82948; 83036; 83605; 83735; 83880; 84100; 84132; 84295; 84443; 85018; 85025; 85027; 85347; 85610; 85730; 86850; 86900; 86901; 86923; 87635; 93005; 93306; 93312; 93356; 93454; 93880; 94002; 94150; 97039; 99156; 99157; A4606; A7048; C1894; G0378; J0171; J0282; J0610; J0690; J1644; J1650; J1815; J1885; J1940; J2001; J2175; J2250; J2405; J2440; J2704; J2720; J3010; J3475; J3480; J3490; J7030; J7040; J7042; J7070; P9045; Q9967

== ENCOUNTER 2023-04-02 11:15 | Emergency (ER) | payer OTHER ==
[~2023-04-02] VITALS: Ht 182.9 cm; Wt 86.6 kg
[~2023-04-02 11:15] MED LIST changes: -0.9%NACL 1000ML 1,000 ML IV SCH; +AEC81 PO; -CILO100T PO; -GLIP10TA9 PO; -LOSA100T58 PO; +LOSA25TA2 PO; -METO-408 PO; +METO25 PO; -SPIR1TAB4 PO; -TIME SLEEP AID PO
[2023-04-02 12:12] LABS: BASOPHILS % (AUTO) 0.4 % (0.0-5.0); EOSINOPHILS % (AUTO) 1.5 % (0.0-8.0); HEMATOCRIT 50.8 % (42-54); LYMPHOCYTES % (AUTO) 21.1 % (21.0-51.0); MEAN CORPUSCULAR HEMOGLOBIN 29.4 pg (27.0-33.0); MEAN CORPUSCULAR HGB CONC 32.9 g/dL (32.0-36.0); MEAN CORPUSCULAR VOLUME 89.4 fL (79-99); NEUTROPHILS % (AUTO) 69.7 % (40.0-77.0); PLATELET COUNT (AUTO) 301 K/uL (130-400); RED BLOOD CELL COUNT(AUTO) 5.68 MIL/uL (4.50-6.20); RED CELL DISTRIBUTION WIDTH 12.6 % (11.0-15.5); WHITE BLOOD COUNT (AUTO) 10.2 K/uL (4.8-10.8)
[2023-04-02 12:14] LABS: APPEARANCE,URINE CLEAR (CLEAR); BILIRUBIN,URINE NEGATIVE (NEGATIVE); COLOR,URINE LIGHT-YELLOW (YELLOW); GLUCOSE, URINE (UA) NEGATIVE (NEGATIVE); KETONES,URINE NEGATIVE (NEGATIVE); LEUKOCYTE ESTERASE ,URINE 25 Leu/uL (NEGATIVE); NITRATE,URINE 2+ (NEGATIVE); OCCULT BLOOD,URINE LARGE (NEGATIVE); PH,URINE 5.5 (5.0-8.0); PROTEIN,URINE NEGATIVE (NEGATIVE); UROBILINOGEN,URINE 0.2 mg/dL (0.2-1.0)
[2023-04-02 12:18] LABS: BACTERIA,URINE RARE /HPF (None Seen); MUCUS,URINE RARE LPF (None Seen); RBC,URINE 51-100 /HPF (0-1)
[2023-04-02 12:32] LABS: POTASSIUM 4.2 mmol/L (3.5-5.1)
[2023-04-02 12:37] LABS: ALBUMIN 3.9 g/dL (3.5-5.0)
[2023-04-02] MEDS ORDERED: CEPH500B PO (12:55)
[2023-04-02 13:20] VITALS: BP 129/72
== END 2023-04-02 13:36 | disposition home or self-care (01) ==
LOC: EDH 11:15
DX: R33.9 Retention of urine, unspecified (principal); E11.9 Type 2 diabetes mellitus without complications; I10 Essential (primary) hypertension; Z79.82 Long term (current) use of aspirin; Z79.84 Long term (current) use of oral hypoglycemic drugs; Z79.899 Other long term (current) drug therapy; Z95.1 Presence of aortocoronary bypass graft
CPT/HCPCS: 36415; 51702; 80053; 81001; 85025; 87077; 87088; 87186; 93005

== ENCOUNTER 2023-04-23 09:42 | Emergency (ER) | payer OTHER ==
[~2023-04-23] VITALS: Ht 182.9 cm; Wt 86.6 kg
[~2023-04-23 09:42] MED LIST changes: +CEPH500B PO
[2023-04-23 10:55] VITALS: BP 151/79
== END 2023-04-23 10:57 | disposition home or self-care (01) ==
LOC: EDH 09:42
DX: T83.018A Breakdown (mechanical) of other urinary catheter, initial encounter (principal); Y83.8 Other surgical procedures as the cause of abnormal reaction of the patient, or of later complication, without mention of misadventure at the time of the procedure; Y92.89 Other specified places as the place of occurrence of the external cause
CPT/HCPCS: 51702

== ENCOUNTER 2023-05-03 23:41 | Inpatient (IN) | payer OTHER ==
[~2023-05-03] VITALS: Ht 182.9 cm; Wt 83.1 kg
[2023-05-04 00:37] LABS: BASOPHILS % (AUTO) 0.3 % (0.0-5.0); EOSINOPHILS % (AUTO) 2.4 % (0.0-8.0); HEMATOCRIT 45.2 % (42-54); LYMPHOCYTES % (AUTO) 31.5 % (21.0-51.0); MEAN CORPUSCULAR HEMOGLOBIN 29.4 pg (27.0-33.0); MEAN CORPUSCULAR HGB CONC 32.3 g/dL (32.0-36.0); MEAN CORPUSCULAR VOLUME 91.1 fL (79-99); MONOCYTES % (AUTO) 7.6 % (3.0-13.0); NEUTROPHILS % (AUTO) 57.9 % (40.0-77.0); PLATELET COUNT (AUTO) 241 K/uL (130-400); RED BLOOD CELL COUNT(AUTO) 4.96 MIL/uL (4.50-6.20); RED CELL DISTRIBUTION WIDTH 13.2 % (11.0-15.5); WHITE BLOOD COUNT (AUTO) 9.6 K/uL (4.8-10.8)
[2023-05-04 00:47] LABS: APPEARANCE,URINE TURBID (CLEAR); BILIRUBIN,URINE NEGATIVE (NEGATIVE); COLOR,URINE BROWN (YELLOW); GLUCOSE, URINE (UA) NEGATIVE (NEGATIVE); KETONES,URINE NEGATIVE (NEGATIVE); LEUKOCYTE ESTERASE ,URINE 250 Leu/uL (NEGATIVE); NITRATE,URINE 2+ (NEGATIVE); OCCULT BLOOD,URINE LARGE (NEGATIVE); PH,URINE 6.5 (5.0-8.0); PROTEIN,URINE 100 mg/dL (NEGATIVE); UROBILINOGEN,URINE 0.2 mg/dL (0.2-1.0)
[2023-05-04 00:50] LABS: RBC,URINE TNTC /HPF (0-1)
[2023-05-04 00:54] LABS: POTASSIUM 4.3 mmol/L (3.5-5.1)
[2023-05-04 00:59] LABS: ALBUMIN 3.5 g/dL (3.5-5.0)
[2023-05-04] MEDS ORDERED: ACETAMINOPHEN 325 MG TAB PO PRN ×2 (04:00)
[2023-05-04] MEDS ORDERED: ONDANSETRON 4MG INJ IV PRN (04:00)
[2023-05-04] MEDS ORDERED: MORPHINE 4 MG SYG IV PRN (04:00)
[2023-05-04] MEDS ORDERED: MORPHINE 2 MG SYG IV PRN (04:00)
[2023-05-04 05:10] VITALS: BP 126/84
[2023-05-04] MEDS: INSULIN HUMULIN R 100 UNIT/ML 3ML SQ SCH ×4 (05:53→19:51)
[2023-05-04 08:00] VITALS: BP 154/72
[2023-05-04] MEDS: FAMOTIDINE 20MG TAB PO SCH (09:43)
[2023-05-04] MEDS: TAMSULOSIN HCL 0.4 MG CAP.ER.24H PO SCH ×2 (09:43→20:13)
[2023-05-04 12:00] VITALS: BP 130/73
[2023-05-04 16:00] VITALS: BP 148/76
[2023-05-04 20:00] VITALS: BP 162/85
[2023-05-05] VITALS: BP 142/76
[2023-05-05 04:00] VITALS: BP 149/71
[2023-05-05 04:26] LABS: BASOPHILS % (AUTO) 0.4 % (0.0-5.0); EOSINOPHILS % (AUTO) 3.7 % (0.0-8.0); HEMATOCRIT 45.4 % (42-54); LYMPHOCYTES % (AUTO) 41.2 % (21.0-51.0); MEAN CORPUSCULAR HEMOGLOBIN 29.1 pg (27.0-33.0); MEAN CORPUSCULAR HGB CONC 32.2 g/dL (32.0-36.0); MEAN CORPUSCULAR VOLUME 90.4 fL (79-99); MONOCYTES % (AUTO) 7.2 % (3.0-13.0); NEUTROPHILS % (AUTO) 47.2 % (40.0-77.0); PLATELET COUNT (AUTO) 263 K/uL (130-400); RED BLOOD CELL COUNT(AUTO) 5.02 MIL/uL (4.50-6.20); RED CELL DISTRIBUTION WIDTH 13.2 % (11.0-15.5); WHITE BLOOD COUNT (AUTO) 7.5 K/uL (4.8-10.8)
[2023-05-05 04:37] LABS: CREATININE 0.9 mg/dL (0.5-1.5)
[2023-05-05 05:59] LABS: HEMOGLOBIN A1C 6.3 % (4.0-6.0)
[2023-05-05] MEDS: INSULIN HUMULIN R 100 UNIT/ML 3ML SQ SCH ×4 (06:33→20:24)
[2023-05-05 08:00] VITALS: BP 125/68
[2023-05-05] MEDS: CEFTRIAXONE 2GM VIAL IVPB SCH (09:15)
[2023-05-05] MEDS: TAMSULOSIN HCL 0.4 MG CAP.ER.24H PO SCH ×2 (09:15→19:50)
[2023-05-05] MEDS: LOSARTAN 25 MG TABLET PO SCH (09:15)
[2023-05-05] MEDS: FAMOTIDINE 20MG TAB PO SCH (09:15)
[2023-05-05 12:00] VITALS: BP 152/74
[2023-05-05 16:00] VITALS: BP 133/74
[2023-05-05 19:44] VITALS: BP 133/68
[2023-05-06] VITALS (7 sets, daily range): BP systolic 131–184; BP diastolic 58–83
[2023-05-06] MEDS: LEVOTHYROXINE 75 MCG TABLET PO SCH (05:35)
[2023-05-06] MEDS: INSULIN HUMULIN R 100 UNIT/ML 3ML SQ SCH ×4 (05:48→19:42)
[2023-05-06 08:26] LABS: HEMATOCRIT 46.3 % (42-54); MEAN CORPUSCULAR HEMOGLOBIN 29.2 pg (27.0-33.0); MEAN CORPUSCULAR HGB CONC 31.7 g/dL (32.0-36.0); MEAN CORPUSCULAR VOLUME 91.9 fL (79-99); RED BLOOD CELL COUNT(AUTO) 5.04 MIL/uL (4.50-6.20); RED CELL DISTRIBUTION WIDTH 13.2 % (11.0-15.5); WHITE BLOOD COUNT (AUTO) 7.2 K/uL (4.8-10.8)
[2023-05-06] MEDS: CEFTRIAXONE 2GM VIAL IVPB SCH (08:54)
[2023-05-06] MEDS: TAMSULOSIN HCL 0.4 MG CAP.ER.24H PO SCH ×2 (08:54→19:42)
[2023-05-06] MEDS: FAMOTIDINE 20MG TAB PO SCH (08:54)
[2023-05-06] MEDS: LOSARTAN 25 MG TABLET PO SCH (08:54)
[2023-05-06 09:18] LABS: CREATININE 1.1 mg/dL (0.5-1.5)
[2023-05-06] MEDS ORDERED: LOSARTAN 25 MG TABLET PO ONE (16:00)
[2023-05-06] MEDS ORDERED: HYDRALAZINE 20MG/ML VIAL IV PRN (16:00)
[2023-05-06] MEDS ORDERED: PHARMACY COMMUNICATION MISC SCH (16:30)
[2023-05-06] MEDS: LOSARTAN 50 MG TABLET PO SCH (16:33)
[2023-05-06] MEDS ORDERED: LOSARTAN 25 MG TABLET PO SCH (21:00)
[2023-05-07 04:10] VITALS: BP 150/70
[2023-05-07] MEDS: INSULIN HUMULIN R 100 UNIT/ML 3ML SQ SCH ×2 (05:19→11:30)
[2023-05-07] MEDS: LEVOTHYROXINE 75 MCG TABLET PO SCH (05:42)
[2023-05-07 05:47] LABS: HEMATOCRIT 42.4 % (42-54); MEAN CORPUSCULAR HEMOGLOBIN 29.4 pg (27.0-33.0); MEAN CORPUSCULAR HGB CONC 32.5 g/dL (32.0-36.0); MEAN CORPUSCULAR VOLUME 90.2 fL (79-99); RED BLOOD CELL COUNT(AUTO) 4.7 MIL/uL (4.50-6.20); RED CELL DISTRIBUTION WIDTH 13.2 % (11.0-15.5); WHITE BLOOD COUNT (AUTO) 6.8 K/uL (4.8-10.8)
[2023-05-07 06:10] LABS: CREATININE 0.8 mg/dL (0.5-1.5); POTASSIUM 3.8 mmol/L (3.5-5.1)
[2023-05-07 07:41] VITALS: BP 145/64
[2023-05-07] MEDS: CEFTRIAXONE 2GM VIAL IVPB SCH (08:58)
[2023-05-07] MEDS: FAMOTIDINE 20MG TAB PO SCH (08:58)
[2023-05-07] MEDS: TAMSULOSIN HCL 0.4 MG CAP.ER.24H PO SCH (08:59)
[2023-05-07] MEDS ORDERED: LOSARTAN 25 MG TABLET PO SCH (09:00)
[2023-05-07 11:46] VITALS: BP 110/68
[2023-05-07] MEDS ORDERED: LEVO-70 PO (13:32)
[2023-05-07] MEDS ORDERED: LOSA25TA41 PO (13:32)
[2023-05-07] MEDS: LOSARTAN 50 MG TABLET PO SCH (15:45)
== END 2023-05-07 14:13 | disposition home or self-care (01) | DRG 690 ==
LOC: EDH 23:41 → EDHIP 05-04 04:00 → 4BH 05-04 05:09
PROVIDERS: ADMIT Hospitalist; ATTEND Hospitalist
PROC: 0T2BX0Z Change Drainage Device in Bladder, External Approach (ICD-10-PCS; principal; 2023-05-04)
DX: N39.0 Urinary tract infection, site not specified (principal); I48.91 Unspecified atrial fibrillation; E11.9 Type 2 diabetes mellitus without complications; I16.0 Hypertensive urgency; N40.0 Benign prostatic hyperplasia without lower urinary tract symptoms; B96.1 Klebsiella pneumoniae [K. pneumoniae] as the cause of diseases classified elsewhere; E78.5 Hyperlipidemia, unspecified; I10 Essential (primary) hypertension; Z79.82 Long term (current) use of aspirin; I25.2 Old myocardial infarction; Z79.4 Long term (current) use of insulin; Z85.828 Personal history of other malignant neoplasm of skin; Z87.891 Personal history of nicotine dependence; Z95.1 Presence of aortocoronary bypass graft
CPT/HCPCS: 36415; 74176; 80048; 80053; 81001; 82948; 83036; 83605; 85025; 85027; 87077; 87088; 87186; 97039; G0378; J0696

== ENCOUNTER 2023-07-08 02:38 | Emergency (ER) | payer OTHER ==
[~2023-07-08] VITALS: Ht 182.9 cm; Wt 80.7 kg
[~2023-07-08 02:38] MED LIST changes: -CEPH500B PO; +LEVO-70 PO; -LOSA25TA2 PO; +LOSA25TA41 PO
[2023-07-08 04:14] LABS: APPEARANCE,URINE TURBID (CLEAR); BILIRUBIN,URINE NEGATIVE (NEGATIVE); COLOR,URINE DARK-BROWN (YELLOW); GLUCOSE, URINE (UA) NEGATIVE (NEGATIVE); KETONES,URINE NEGATIVE (NEGATIVE); LEUKOCYTE ESTERASE ,URINE 250 Leu/uL (NEGATIVE); NITRATE,URINE NEGATIVE (NEGATIVE); OCCULT BLOOD,URINE LARGE (NEGATIVE); PH,URINE 5.5 (5.0-8.0); PROTEIN,URINE 200 mg/dL (NEGATIVE); UROBILINOGEN,URINE 0.2 mg/dL (0.2-1.0)
[2023-07-08 04:15] LABS: ADD UA MICROSCOPIC YES
[2023-07-08 04:27] LABS: MUCUS,URINE MANY LPF (None Seen); RBC,URINE TNTC /HPF (0-1); WBC CLUMP RARE /HPF (0-1); YEAST,URINE BUDDING MOD /HPF (None Seen)
[2023-07-08 04:40] LABS: BASOPHILS # (AUTO) 0.03 K/uL (0.00-0.20); BASOPHILS % (AUTO) 0.4 % (0.0-5.0); EOSINOPHILS # (AUTO) 0.16 K/uL (0.00-0.70); EOSINOPHILS % (AUTO) 2.3 % (0.0-8.0); HEMATOCRIT 41.3 % (42-54); IMMATURE GRANULOCYTE ABSOLUTE 0.02 K/uL (0-1); LYMPHOCYTES # (AUTO) 2.3 K/uL (1.0-4.8); LYMPHOCYTES % (AUTO) 33.1 % (21.0-51.0); MEAN CORPUSCULAR HEMOGLOBIN 29.8 pg (27.0-33.0); MEAN CORPUSCULAR HGB CONC 32.4 g/dL (32.0-36.0); MONOCYTES # (AUTO) 0.6 K/uL (0.1-1.0); MONOCYTES % (AUTO) 8.1 % (3.0-13.0); NEUTROPHILS # (AUTO) 3.9 K/uL (1.8-7.7); NEUTROPHILS % (AUTO) 55.8 % (40.0-77.0); PLATELET COUNT (AUTO) 199 K/uL (130-400); RED BLOOD CELL COUNT(AUTO) 4.49 MIL/uL (4.50-6.20); RED CELL DISTRIBUTION WIDTH 13.8 % (11.0-15.5); WHITE BLOOD COUNT (AUTO) 6.9 K/uL (4.8-10.8)
[2023-07-08 04:50] LABS: CREATININE 0.9 mg/dL (0.5-1.5); POTASSIUM 3.9 mmol/L (3.5-5.1)
[2023-07-08 04:54] LABS: ALBUMIN 3.3 g/dL (3.5-5.0); BILIRUBIN,TOTAL 0.2 mg/dL (0.2-1.0); INR 0.94 (0.85-1.15); PROTHROMBIN TIME 10.9 SEC (9.6-11.6); TOTAL PROTEIN, SERUM 6.3 g/dL (6.0-8.3)
[2023-07-08 04:56] LABS: PARTIAL THROMBOPLASTIN TIME 27.7 SEC (26.3-35.5)
[2023-07-08 05:04] VITALS: BP 156/65; PULSE 44; RESP 16; O2SAT 100
[2023-07-08] MEDS ORDERED: FINA-37 PO (05:04)
== END 2023-07-08 05:17 | disposition home or self-care (01) ==
LOC: EDH 02:38
DX: R31.9 Hematuria, unspecified (principal); I10 Essential (primary) hypertension; E11.9 Type 2 diabetes mellitus without complications; E78.00 Pure hypercholesterolemia, unspecified; Z79.82 Long term (current) use of aspirin; Z79.84 Long term (current) use of oral hypoglycemic drugs; Z79.899 Other long term (current) drug therapy; Z98.890 Other specified postprocedural states
CPT/HCPCS: 36415; 80053; 81001; 85025; 85610; 85730; 87088

== ENCOUNTER 2023-07-08 09:31 | Emergency (ER) | payer OTHER ==
[~2023-07-08 09:31] MED LIST changes: +FINA-37 PO
[2023-07-08 11:51] LABS: BASOPHILS # (AUTO) 0.03 K/uL (0.00-0.20); BASOPHILS % (AUTO) 0.4 % (0.0-5.0); EOSINOPHILS # (AUTO) 0.12 K/uL (0.00-0.70); EOSINOPHILS % (AUTO) 1.7 % (0.0-8.0); HEMATOCRIT 44.2 % (42-54); IMMATURE GRANULOCYTE ABSOLUTE 0.02 K/uL (0-1); LYMPHOCYTES # (AUTO) 2.6 K/uL (1.0-4.8); MEAN CORPUSCULAR HEMOGLOBIN 29.7 pg (27.0-33.0); MEAN CORPUSCULAR HGB CONC 32.6 g/dL (32.0-36.0); MEAN CORPUSCULAR VOLUME 91.1 fL (79-99); MONOCYTES # (AUTO) 0.5 K/uL (0.1-1.0); MONOCYTES % (AUTO) 6.4 % (3.0-13.0); NEUTROPHILS # (AUTO) 3.9 K/uL (1.8-7.7); NEUTROPHILS % (AUTO) 55.2 % (40.0-77.0); PLATELET COUNT (AUTO) 231 K/uL (130-400); RED BLOOD CELL COUNT(AUTO) 4.85 MIL/uL (4.50-6.20); WHITE BLOOD COUNT (AUTO) 7.1 K/uL (4.8-10.8)
[2023-07-08 12:07] LABS: CREATININE 0.9 mg/dL (0.5-1.5); POTASSIUM 4.8 mmol/L (3.5-5.1)
[2023-07-08 12:12] LABS: ALBUMIN 3.6 g/dL (3.5-5.0); BILIRUBIN,TOTAL 0.5 mg/dL (0.2-1.0)
[2023-07-08 17:41] VITALS: BP 151/69; PULSE 55; RESP 17; O2SAT 96
== END 2023-07-08 17:52 | disposition home or self-care (01) ==
LOC: EDH 09:31
DX: N30.91 Cystitis, unspecified with hematuria (principal); I10 Essential (primary) hypertension; E11.9 Type 2 diabetes mellitus without complications; E78.00 Pure hypercholesterolemia, unspecified; Z79.82 Long term (current) use of aspirin; Z79.84 Long term (current) use of oral hypoglycemic drugs; Z98.890 Other specified postprocedural states; Z79.899 Other long term (current) drug therapy
CPT/HCPCS: 36415; 51701; 80053; 85025

== ENCOUNTER 2023-08-09 10:39 | Emergency (ER) | payer OTHER ==
[~2023-08-09] VITALS: Ht 182.9 cm; Wt 79.4 kg
[2023-08-09 12:15] LABS: ADD UA MICROSCOPIC YES
[2023-08-09 12:25] LABS: APPEARANCE,URINE CLOUDY (CLEAR); BACTERIA,URINE RARE /HPF (None Seen); BILIRUBIN,URINE NEGATIVE (NEGATIVE); COLOR,URINE YELLOW (YELLOW); GLUCOSE, URINE (UA) NEGATIVE (NEGATIVE); KETONES,URINE 5 mg/dL (NEGATIVE); LEUKOCYTE ESTERASE ,URINE 500 Leu/uL (NEGATIVE); MUCUS,URINE RARE LPF (None Seen); NITRATE,URINE NEGATIVE (NEGATIVE); OCCULT BLOOD,URINE SMALL (NEGATIVE); PH,URINE 6.5 (5.0-8.0); PROTEIN,URINE 70 mg/dL (NEGATIVE); RBC,URINE 26-50 /HPF (0-1); UROBILINOGEN,URINE 0.2 mg/dL (0.2-1.0); WBC CLUMP RARE /HPF (0-1); WBC,URINE 51-100 /HPF (0-1)
[2023-08-09 14:00] VITALS: BP 126/74; PULSE 68; RESP 18; O2SAT 98
[2023-08-09] MEDS ORDERED: CEPH500B PO (14:07)
[2023-08-09] MEDS ORDERED: CEPHALEXIN 500 MG CAPSULE PO ONE (14:30)
== END 2023-08-09 14:42 | disposition home or self-care (01) ==
LOC: EDH 10:39
DX: N39.0 Urinary tract infection, site not specified (principal); E11.9 Type 2 diabetes mellitus without complications; E78.00 Pure hypercholesterolemia, unspecified; I10 Essential (primary) hypertension; Z79.82 Long term (current) use of aspirin; Z79.84 Long term (current) use of oral hypoglycemic drugs; Z79.890 Hormone replacement therapy; Z95.1 Presence of aortocoronary bypass graft
CPT/HCPCS: 51701; 81001; 87088

== ENCOUNTER 2023-09-30 01:54 | Observation (INO) | payer OTHER ==
[~2023-09-30] VITALS: Ht 182.9 cm; Wt 84.1 kg
[~2023-09-30 01:54] MED LIST changes: +CEPH500B PO
[2023-09-30] MEDS ORDERED: CLONIDINE HCL 0.1 MG TABLET PO ONE (02:30)
[2023-09-30 03:13] LABS: BASOPHILS # (AUTO) 0.04 K/uL (0.00-0.20); BASOPHILS % (AUTO) 0.6 % (0.0-5.0); EOSINOPHILS # (AUTO) 0.21 K/uL (0.00-0.70); IMMATURE GRANULOCYTE ABSOLUTE 0.02 K/uL (0-1); LYMPHOCYTES # (AUTO) 2.1 K/uL (1.0-4.8); LYMPHOCYTES % (AUTO) 29.9 % (21.0-51.0); MEAN CORPUSCULAR HEMOGLOBIN 30.4 pg (27.0-33.0); MEAN CORPUSCULAR HGB CONC 32.8 g/dL (32.0-36.0); MEAN CORPUSCULAR VOLUME 92.9 fL (79-99); MONOCYTES # (AUTO) 0.7 K/uL (0.1-1.0); MONOCYTES % (AUTO) 9.4 % (3.0-13.0); NEUTROPHILS % (AUTO) 56.8 % (40.0-77.0); PLATELET COUNT (AUTO) 210 K/uL (130-400); RED BLOOD CELL COUNT(AUTO) 5.06 MIL/uL (4.50-6.20); RED CELL DISTRIBUTION WIDTH 12.9 % (11.0-15.5); WHITE BLOOD COUNT (AUTO) 7.1 K/uL (4.8-10.8)
[2023-09-30 03:22] LABS: CREATININE 0.7 mg/dL (0.5-1.5); POTASSIUM 4.6 mmol/L (3.5-5.1)
[2023-09-30 03:26] LABS: APPEARANCE,URINE CLEAR (CLEAR); BILIRUBIN,URINE NEGATIVE (NEGATIVE); COLOR,URINE COLORLESS (YELLOW); GLUCOSE, URINE (UA) NEGATIVE (NEGATIVE); KETONES,URINE NEGATIVE (NEGATIVE); LEUKOCYTE ESTERASE ,URINE NEGATIVE Leu/uL (NEGATIVE); NITRATE,URINE NEGATIVE (NEGATIVE); OCCULT BLOOD,URINE NEGATIVE (NEGATIVE); PH,URINE 7.5 (5.0-8.0); PROTEIN,URINE NEGATIVE (NEGATIVE); UROBILINOGEN,URINE 0.2 mg/dL (0.2-1.0)
[2023-09-30 03:28] LABS: ALBUMIN 3.8 g/dL (3.5-5.0); BILIRUBIN,TOTAL 0.6 mg/dL (0.2-1.0); MAGNESIUM 2.1 mg/dL (1.80-2.40); TOTAL PROTEIN, SERUM 7.5 g/dL (6.0-8.3)
[2023-09-30 03:31] LABS: ADD UA MICROSCOPIC NO
[2023-09-30 03:33] LABS: B-TYPE NATRIURETIC PEPTIDE 63 pg/mL (0-100)
[2023-09-30] MEDS: HYDRALAZINE 20MG/ML VIAL IV PRN ×2 (08:56→15:52)
[2023-09-30] MEDS: FAMOTIDINE 20MG TAB PO SCH ×2 (08:56→20:52)
[2023-09-30] MEDS ORDERED: TAMS-1 PO (09:34)
[2023-09-30] MEDS ORDERED: CLON0.1T PO (09:34)
[2023-09-30] MEDS ORDERED: INSU100V52 SQ (09:34)
[2023-09-30] MEDS ORDERED: METO25TA6 PO (09:34)
[2023-09-30 09:37] LABS: THYROID STIMULATING HORMONE 5.37 uIU/mL (0.36-3.74)
[2023-09-30] MEDS ORDERED: CYAN100099 PO (09:45)
[2023-09-30] MEDS ORDERED: MELA3TAB41 PO (09:45)
[2023-09-30] MEDS ORDERED: DOCU100C33 PO (09:45)
[2023-09-30] MEDS ORDERED: ROSU20TA73 PO (09:45)
[2023-09-30] MEDS: INSULIN HUMULIN R 100 UNIT/ML 3ML SQ SCH ×3 (11:24→20:52)
[2023-09-30] MEDS ORDERED: POTASSIUM CHLORIDE 10% ELIXIR 20 MEQ/15 ML UDCUP PO PRN (11:30)
[2023-09-30] MEDS ORDERED: POTASSIUM CHLORIDE 20MEQ/100ML 100 ML IV PRN (11:30)
[2023-09-30] MEDS ORDERED: KCL 20 MEQ ERTAB PO PRN (11:30)
[2023-09-30] MEDS ORDERED: MAGNESIUM 2GM PREMIX 50ML 50 ML IV PRN (11:30)
[2023-09-30 12:00] VITALS: BP 126/77; PULSE 77; RESP 14
[2023-09-30 13:48] VITALS: BP 174/76; PULSE 50; RESP 16
[2023-09-30 16:31] VITALS: BP 126/66; RESP 16
[2023-09-30] MEDS: TAMSULOSIN HCL 0.4 MG CAP.ER.24H PO SCH (20:51)
[2023-09-30] MEDS: INSULIN GLARGINE 100 UNITS/ML 10 ML VIAL SQ SCH (20:52)
[2023-09-30] MEDS: ACETAMINOPHEN 325 MG TAB PO SCH (21:19)
[2023-09-30] MEDS ORDERED: LIDOCAINE 5% TOPICAL PATCH TP ONE (21:27)
[2023-09-30] MEDS ORDERED: MORPHINE 2 MG SYG IVP PRN (21:30)
[2023-09-30] MEDS ORDERED: ONDANSETRON 4MG INJ IVP PRN (21:30)
[2023-09-30] MEDS: LIDOCAINE 5% TOPICAL PATCH TP SCH (21:33)
[2023-10-01] VITALS (11 sets, daily range): BP systolic 120–172; BP diastolic 65–90; PULSE 57–103; RESP 18–19; O2SAT 97
[2023-10-01] MEDS: INSULIN HUMULIN R 100 UNIT/ML 3ML SQ SCH ×4 (06:03→21:25)
[2023-10-01] MEDS: CYANOCOBALAMIN (VITAMIN B-12) 1,000 MCG TABLET PO SCH (09:05)
[2023-10-01] MEDS: FAMOTIDINE 20MG TAB PO SCH ×2 (09:05→21:02)
[2023-10-01] MEDS: LEVOTHYROXINE 75 MCG TABLET PO SCH (09:05)
[2023-10-01] MEDS: ASPIRIN 81 MG EC TAB PO SCH (09:06)
[2023-10-01] MEDS: DOCUSATE SODIUM 100 MG CAP PO SCH (09:06)
[2023-10-01] MEDS: TAMSULOSIN HCL 0.4 MG CAP.ER.24H PO SCH ×2 (09:07→21:02)
[2023-10-01 09:38] LABS: BASOPHILS # (AUTO) 0.02 K/uL (0.00-0.20); BASOPHILS % (AUTO) 0.3 % (0.0-5.0); EOSINOPHILS # (AUTO) 0.09 K/uL (0.00-0.70); EOSINOPHILS % (AUTO) 1.2 % (0.0-8.0); HEMATOCRIT 46.8 % (42-54); IMMATURE GRANULOCYTE ABSOLUTE 0.04 K/uL (0-1); LYMPHOCYTES # (AUTO) 1.8 K/uL (1.0-4.8); LYMPHOCYTES % (AUTO) 22.5 % (21.0-51.0); MEAN CORPUSCULAR HGB CONC 32.7 g/dL (32.0-36.0); MEAN CORPUSCULAR VOLUME 94.7 fL (79-99); MONOCYTES # (AUTO) 0.7 K/uL (0.1-1.0); MONOCYTES % (AUTO) 8.4 % (3.0-13.0); NEUTROPHILS # (AUTO) 5.2 K/uL (1.8-7.7); NEUTROPHILS % (AUTO) 67.1 % (40.0-77.0); PLATELET COUNT (AUTO) 207 K/uL (130-400); RED BLOOD CELL COUNT(AUTO) 4.94 MIL/uL (4.50-6.20); RED CELL DISTRIBUTION WIDTH 12.9 % (11.0-15.5); WHITE BLOOD COUNT (AUTO) 7.8 K/uL (4.8-10.8)
[2023-10-01 09:58] LABS: ALBUMIN 3.1 g/dL (3.5-5.0); BILIRUBIN,TOTAL 0.6 mg/dL (0.2-1.0); POTASSIUM 3.7 mmol/L (3.5-5.1); TOTAL PROTEIN, SERUM 6.7 g/dL (6.0-8.3)
[2023-10-01] MEDS: INSULIN GLARGINE 100 UNITS/ML 10 ML VIAL SQ SCH (21:07)
[2023-10-02] VITALS (8 sets, daily range): BP systolic 135–153; BP diastolic 67–88; PULSE 54–81; RESP 18–19; O2SAT 96–97
[2023-10-02 05:45] LABS: BASOPHILS # (AUTO) 0.03 K/uL (0.00-0.20); BASOPHILS % (AUTO) 0.4 % (0.0-5.0); EOSINOPHILS # (AUTO) 0.16 K/uL (0.00-0.70); EOSINOPHILS % (AUTO) 2.2 % (0.0-8.0); HEMATOCRIT 41.8 % (42-54); IMMATURE GRANULOCYTE ABSOLUTE 0.02 K/uL (0-1); LYMPHOCYTES # (AUTO) 2.4 K/uL (1.0-4.8); MEAN CORPUSCULAR HEMOGLOBIN 30.8 pg (27.0-33.0); MEAN CORPUSCULAR HGB CONC 33.3 g/dL (32.0-36.0); MEAN CORPUSCULAR VOLUME 92.5 fL (79-99); MONOCYTES # (AUTO) 0.7 K/uL (0.1-1.0); MONOCYTES % (AUTO) 9.2 % (3.0-13.0); NEUTROPHILS % (AUTO) 54.9 % (40.0-77.0); PLATELET COUNT (AUTO) 203 K/uL (130-400); RED BLOOD CELL COUNT(AUTO) 4.52 MIL/uL (4.50-6.20); RED CELL DISTRIBUTION WIDTH 12.8 % (11.0-15.5); WHITE BLOOD COUNT (AUTO) 7.3 K/uL (4.8-10.8)
[2023-10-02 05:56] LABS: ALBUMIN 2.8 g/dL (3.5-5.0); BILIRUBIN,TOTAL 0.6 mg/dL (0.2-1.0); CREATININE 0.8 mg/dL (0.5-1.5); MAGNESIUM 1.9 mg/dL (1.80-2.40); POTASSIUM 3.7 mmol/L (3.5-5.1); TOTAL PROTEIN, SERUM 6.3 g/dL (6.0-8.3)
[2023-10-02] MEDS: INSULIN HUMULIN R 100 UNIT/ML 3ML SQ SCH ×4 (06:46→20:19)
[2023-10-02] MEDS: TAMSULOSIN HCL 0.4 MG CAP.ER.24H PO SCH ×2 (09:16→20:14)
[2023-10-02] MEDS: CYANOCOBALAMIN (VITAMIN B-12) 1,000 MCG TABLET PO SCH (09:16)
[2023-10-02] MEDS: FAMOTIDINE 20MG TAB PO SCH ×2 (09:16→20:14)
[2023-10-02] MEDS: ASPIRIN 81 MG EC TAB PO SCH (09:16)
[2023-10-02] MEDS: LEVOTHYROXINE 75 MCG TABLET PO SCH (09:16)
[2023-10-02] MEDS: DOCUSATE SODIUM 100 MG CAP PO SCH (09:16)
[2023-10-02] MEDS: LIDOCAINE 5% TOPICAL PATCH TP SCH (09:17)
[2023-10-02] MEDS: INSULIN GLARGINE 100 UNITS/ML 10 ML VIAL SQ SCH (20:19)
[2023-10-03] MEDS: ACETAMINOPHEN 325 MG TAB PO SCH (00:20)
[2023-10-03 04:00] VITALS: BP 154/77; PULSE 54; RESP 18
[2023-10-03] MEDS: INSULIN HUMULIN R 100 UNIT/ML 3ML SQ SCH (05:50)
[2023-10-03 09:00] VITALS: O2SAT 98
[2023-10-03] MEDS: TAMSULOSIN HCL 0.4 MG CAP.ER.24H PO SCH (09:09)
[2023-10-03] MEDS: DOCUSATE SODIUM 100 MG CAP PO SCH (09:09)
[2023-10-03] MEDS: LEVOTHYROXINE 75 MCG TABLET PO SCH (09:09)
[2023-10-03] MEDS: ASPIRIN 81 MG EC TAB PO SCH (09:09)
[2023-10-03] MEDS: FAMOTIDINE 20MG TAB PO SCH (09:09)
[2023-10-03] MEDS: CYANOCOBALAMIN (VITAMIN B-12) 1,000 MCG TABLET PO SCH (09:09)
[2023-10-03] MEDS: LIDOCAINE 5% TOPICAL PATCH TP SCH (09:14)
[2023-10-03 09:33] VITALS: BP 146/79; PULSE 65; RESP 16
== END 2023-10-03 11:30 | disposition home or self-care (01) ==
LOC: EDH 01:54 → EDHIP 06:32 → INTOOBSV 06:32 → 3CH 21:53 → EDHIP 22:50 → 3BH 10-01 00:59
PROVIDERS: ADMIT Hospitalist; ATTEND Hospitalist
DX: I16.0 Hypertensive urgency (principal); R26.9 Unspecified abnormalities of gait and mobility; I10 Essential (primary) hypertension; I25.10 Atherosclerotic heart disease of native coronary artery without angina pectoris; E78.00 Pure hypercholesterolemia, unspecified; E03.9 Hypothyroidism, unspecified; E11.51 Type 2 diabetes mellitus with diabetic peripheral angiopathy without gangrene; Q33.3 Agenesis of lung; R00.1 Bradycardia, unspecified; Z95.1 Presence of aortocoronary bypass graft; Z79.4 Long term (current) use of insulin; Z79.82 Long term (current) use of aspirin; Z79.84 Long term (current) use of oral hypoglycemic drugs; Z79.899 Other long term (current) drug therapy; Z98.890 Other specified postprocedural states; Y92.009 Unspecified place in unspecified non-institutional (private) residence as the place of occurrence of the external cause
CPT/HCPCS: 96376; 96372 ×4; 96375; 99285; 84443; 83735 ×3; 84484; 80061; 80053 ×3; 83880; 85025 ×3; 82948 ×11; 81003; 36415 ×4; 71045; 70450 ×2; 74176; 93306; 96374; 93005; 97161; 97116; 97530 ×2; J2270; J0360 ×2; J1815 ×3; G0378 ×40; C8924; G8980; G8983; J3475

== ENCOUNTER 2023-10-10 16:41 | Inpatient (IN) | payer OTHER ==
[~2023-10-10] VITALS: Ht 182.9 cm; Wt 83.5 kg
[~2023-10-10 16:41] MED LIST changes: -AEC81 PO; -AMLO-258 PO; -CEPH500B PO; -CINAMMON PO; +CLON0.1T PO; +CYAN100099 PO; +DOCU100C33 PO; -FINA-37 PO; -FISH12002 PO; -LEVO-70 PO; -LOSA25TA41 PO; +MELA3TAB41 PO; -METF-446 PO; -METO25 PO; -MV-M1TAB20 PO; +ROSU20TA73 PO; +TAMS-1 PO
[2023-10-10 17:42] LABS: HEMATOCRIT 43.6 % (42-54); MEAN CORPUSCULAR HEMOGLOBIN 31.1 pg (27.0-33.0); MEAN CORPUSCULAR HGB CONC 33.5 g/dL (32.0-36.0); MEAN CORPUSCULAR VOLUME 92.8 fL (79-99); RED BLOOD CELL COUNT(AUTO) 4.7 MIL/uL (4.50-6.20); RED CELL DISTRIBUTION WIDTH 12.5 % (11.0-15.5); WHITE BLOOD COUNT (AUTO) 7.2 K/uL (4.8-10.8)
[2023-10-10 17:57] LABS: CREATININE 1.1 mg/dL (0.5-1.5); POTASSIUM 4.7 mmol/L (3.5-5.1)
[2023-10-10 18:10] LABS: ALBUMIN 3.5 g/dL (3.5-5.0); BILIRUBIN,TOTAL 0.3 mg/dL (0.2-1.0); MAGNESIUM 1.8 mg/dL (1.80-2.40); THYROID STIMULATING HORMONE 5.75 uIU/mL (0.36-3.74); TOTAL PROTEIN, SERUM 7.4 g/dL (6.0-8.3)
[2023-10-10 18:44] VITALS: BP 190/88; PULSE 59; RESP 18
[2023-10-10 18:55] VITALS: O2SAT 99
[2023-10-10] MEDS ORDERED: HYDRALAZINE 20MG/ML VIAL IV PRN (19:30)
[2023-10-10 20:00] VITALS: O2SAT 100
[2023-10-10] MEDS: INSULIN HUMULIN R 100 UNIT/ML 3ML SQ SCH (21:00)
[2023-10-10 21:34] VITALS: BP 156/70; PULSE 59; RESP 18
[2023-10-10] MEDS ORDERED: SENN8.6T32 PO (22:39)
[2023-10-10] MEDS ORDERED: METF-446 PO (22:39)
[2023-10-10] MEDS ORDERED: METO25TA6 PO (22:39)
[2023-10-10] MEDS ORDERED: ASPI-1005 PO (22:39)
[2023-10-11] VITALS (13 sets, daily range): BP systolic 125–173; BP diastolic 54–99; PULSE 50–96; RESP 16–20; O2SAT 100
[2023-10-11 04:21] LABS: BASOPHILS # (AUTO) 0.05 K/uL (0.00-0.20); BASOPHILS % (AUTO) 0.8 % (0.0-5.0); EOSINOPHILS # (AUTO) 0.17 K/uL (0.00-0.70); EOSINOPHILS % (AUTO) 2.7 % (0.0-8.0); HEMATOCRIT 42.4 % (42-54); IMMATURE GRANULOCYTE ABSOLUTE 0.02 K/uL (0-1); LYMPHOCYTES # (AUTO) 2.1 K/uL (1.0-4.8); LYMPHOCYTES % (AUTO) 33.8 % (21.0-51.0); MEAN CORPUSCULAR HEMOGLOBIN 31.2 pg (27.0-33.0); MEAN CORPUSCULAR HGB CONC 33.3 g/dL (32.0-36.0); MEAN CORPUSCULAR VOLUME 93.8 fL (79-99); MONOCYTES # (AUTO) 0.6 K/uL (0.1-1.0); MONOCYTES % (AUTO) 9.4 % (3.0-13.0); NEUTROPHILS # (AUTO) 3.3 K/uL (1.8-7.7); PLATELET COUNT (AUTO) 241 K/uL (130-400); RED BLOOD CELL COUNT(AUTO) 4.52 MIL/uL (4.50-6.20); RED CELL DISTRIBUTION WIDTH 12.5 % (11.0-15.5); WHITE BLOOD COUNT (AUTO) 6.3 K/uL (4.8-10.8)
[2023-10-11 04:24] LABS: HEMOGLOBIN A1C 6.4 % (4.0-6.0)
[2023-10-11 04:31] LABS: INR < 0.93 (0.85-1.15); PROTHROMBIN TIME 10.7 SEC (9.6-11.6)
[2023-10-11 04:32] LABS: PARTIAL THROMBOPLASTIN TIME 29.3 SEC (26.3-35.5)
[2023-10-11] MEDS: INSULIN HUMULIN R 100 UNIT/ML 3ML SQ SCH ×3 (06:52→16:30)
[2023-10-11] MEDS ORDERED: MEPERIDINE-PF 50 MG/ML SYG ONE (07:16)
[2023-10-11] MEDS ORDERED: IOHEXOL-350 50ML VIAL IV ONE (07:16)
[2023-10-11] MEDS ORDERED: LIDOCAINE HCL 1% MDV 50ML VIAL ONE (07:16)
[2023-10-11] MEDS ORDERED: BUPIVACAINE/PF 0.25% 30ML VIAL IJ ONE (07:16)
[2023-10-11] MEDS ORDERED: MIDAZOLAM HCL 1 MG/ML 2ML VIAL ONE ×3 (07:16→08:18)
[2023-10-11] MEDS ORDERED: CEFAZOLIN SODIUM 1 GM VIAL ONE (07:39)
[2023-10-11] MEDS ORDERED: MEPERIDINE-PF 25 MG/ML SYG ONE (07:49)
[2023-10-11] MEDS ORDERED: CEFAZOLIN SODIUM 1 GM VIAL IVPB ONE (14:00)
[2023-10-11] MEDS ORDERED: METOPROLOL TARTRATE 25 MG TAB PO SCH (21:00)
[2023-10-11] MEDS ORDERED: TAMSULOSIN HCL 0.4 MG CAP.ER.24H PO SCH (21:00)
[2023-10-12] MEDS ORDERED: LEVOTHYROXINE 75 MCG TABLET PO SCH (06:30)
[2023-10-12] MEDS ORDERED: ATORVASTATIN 10 MG TABLET PO SCH (09:00)
[2023-10-12] MEDS ORDERED: ASPIRIN 81MG CHEW TAB PO SCH (09:00)
== END 2023-10-11 20:30 | disposition home or self-care (01) | DRG 309 ==
LOC: EDH 16:41 → EDHIP 16:42 → 2DH 18:33
PROVIDERS: ADMIT Internal Medicine Pulmonary Disease; ATTEND Internal Medicine Pulmonary Disease
DX: R00.1 Bradycardia, unspecified (principal); I25.810 Atherosclerosis of coronary artery bypass graft(s) without angina pectoris; I44.2 Atrioventricular block, complete; I10 Essential (primary) hypertension; E78.5 Hyperlipidemia, unspecified; E11.9 Type 2 diabetes mellitus without complications; Z85.828 Personal history of other malignant neoplasm of skin; Z95.0 Presence of cardiac pacemaker; Z95.1 Presence of aortocoronary bypass graft; I25.2 Old myocardial infarction
CPT/HCPCS: 33208; 36415; 71045; 80053; 80061; 82948; 83036; 83735; 83880; 84443; 85025; 85027; 85610; 85730; 99156; 99157; C1769; C1785; G0378; J0360; J0690; J1815; J2175; J2250; J3490; Q9967; C1894; C1898; J0665

== ENCOUNTER → 2023-10-25 | Outpatient (CLI) | payer OTHER ==
[~2023-10-25] MED LIST changes: +ASPI-1005 PO; +METF-446 PO; +METO25TA6 PO; +SENN8.6T32 PO
== END | disposition home or self-care (01) ==
LOC: RAH 09:19
PROVIDERS: ATTEND Urology
DX: K57.90 Diverticulosis of intestine, part unspecified, without perforation or abscess without bleeding (principal); I25.10 Atherosclerotic heart disease of native coronary artery without angina pectoris; R33.9 Retention of urine, unspecified; M47.815 Spondylosis without myelopathy or radiculopathy, thoracolumbar region; I70.90 Unspecified atherosclerosis
CPT/HCPCS: 74176

== ENCOUNTER 2024-01-09 15:57 | Emergency (ER) | payer OTHER ==
[~2024-01-09] VITALS: Ht 182.9 cm; Wt 98.9 kg
[2024-01-09 18:27] LABS: APPEARANCE,URINE CLEAR (CLEAR); BILIRUBIN,URINE NEGATIVE (NEGATIVE); COLOR,URINE YELLOW (YELLOW); GLUCOSE, URINE (UA) NEGATIVE (NEGATIVE); KETONES,URINE NEGATIVE (NEGATIVE); LEUKOCYTE ESTERASE ,URINE NEGATIVE Leu/uL (NEGATIVE); NITRATE,URINE NEGATIVE (NEGATIVE); OCCULT BLOOD,URINE NEGATIVE (NEGATIVE); PH,URINE 5.5 (5.0-8.0); PROTEIN,URINE 10 mg/dL (NEGATIVE); UROBILINOGEN,URINE 0.2 mg/dL (0.2-1.0)
[2024-01-09 18:29] LABS: ADD UA MICROSCOPIC YES
[2024-01-09 18:33] LABS: MUCUS,URINE RARE LPF (None Seen); OTHER CASTS, URINE 1 /LPF (None Seen); RBC,URINE 0-1 /HPF (0-1); SQUAMOUS EPITHELIAL CELL,UR RARE /HPF (0-2)
[2024-01-09 18:53] LABS: BASOPHILS # (AUTO) 0.03 K/uL (0.00-0.20); BASOPHILS % (AUTO) 0.4 % (0.0-5.0); EOSINOPHILS # (AUTO) 0.18 K/uL (0.00-0.70); EOSINOPHILS % (AUTO) 2.7 % (0.0-8.0); HEMATOCRIT 45.3 % (42-54); IMMATURE GRANULOCYTE ABSOLUTE 0.01 K/uL (0-1); LYMPHOCYTES # (AUTO) 2.3 K/uL (1.0-4.8); LYMPHOCYTES % (AUTO) 34.7 % (21.0-51.0); MEAN CORPUSCULAR HEMOGLOBIN 30.9 pg (27.0-33.0); MEAN CORPUSCULAR HGB CONC 33.1 g/dL (32.0-36.0); MEAN CORPUSCULAR VOLUME 93.4 fL (79-99); MONOCYTES # (AUTO) 0.5 K/uL (0.1-1.0); NEUTROPHILS # (AUTO) 3.7 K/uL (1.8-7.7); NEUTROPHILS % (AUTO) 55.1 % (40.0-77.0); PLATELET COUNT (AUTO) 198 K/uL (130-400); RED BLOOD CELL COUNT(AUTO) 4.85 MIL/uL (4.50-6.20); RED CELL DISTRIBUTION WIDTH 12.7 % (11.0-15.5); WHITE BLOOD COUNT (AUTO) 6.7 K/uL (4.8-10.8)
[2024-01-09 19:10] LABS: CREATININE 1.1 mg/dL (0.5-1.3); POTASSIUM 4.2 mmol/L (3.5-5.1)
[2024-01-09 19:15] LABS: ALBUMIN 3.5 g/dL (3.5-5.0); BILIRUBIN,TOTAL 0.4 mg/dL (0.2-1.0); TOTAL PROTEIN, SERUM 6.7 g/dL (6.0-8.3)
[2024-01-09 21:12] LABS: RAPID GROUP A STREP negative (NEGATIVE)
[2024-01-09 21:22] LABS: COVID19 (SARS ANTIGEN RAPID) PRESUMPTIVE NEGATIVE (NEGATIVE); INFLUENZA TYPE A Negative For Type A (NEGATIVE); INFLUENZA TYPE B Negative For Type B (NEGATIVE)
[2024-01-09 22:13] VITALS: BP 151/66; PULSE 66; RESP 18; O2SAT 97
== END 2024-01-09 22:17 | disposition home or self-care (01) ==
LOC: EDH 15:57
DX: E86.0 Dehydration (principal); E03.9 Hypothyroidism, unspecified; E11.9 Type 2 diabetes mellitus without complications; E78.00 Pure hypercholesterolemia, unspecified; I10 Essential (primary) hypertension; Z79.82 Long term (current) use of aspirin; Z79.84 Long term (current) use of oral hypoglycemic drugs; Z79.890 Hormone replacement therapy; Z79.899 Other long term (current) drug therapy; Z85.828 Personal history of other malignant neoplasm of skin; Z95.1 Presence of aortocoronary bypass graft; Z20.822 Contact with and (suspected) exposure to COVID-19
CPT/HCPCS: 36415; 70450; 80053; 81001; 85025; 87426; 87804; 87807; 87880

== ENCOUNTER 2024-02-04 20:32 | Emergency (ER) | payer OTHER ==
[~2024-02-04] VITALS: Ht 182.9 cm; Wt 83.9 kg
[2024-02-04 20:47] VITALS: BP 138/78; PULSE 73; RESP 18
== END 2024-02-04 21:35 | disposition home or self-care (01) ==
LOC: EDH 20:32
DX: T18.8XXA Foreign body in other parts of alimentary tract, initial encounter (principal); I10 Essential (primary) hypertension; E11.9 Type 2 diabetes mellitus without complications; E78.00 Pure hypercholesterolemia, unspecified; Z79.82 Long term (current) use of aspirin; Z79.84 Long term (current) use of oral hypoglycemic drugs; Z79.899 Other long term (current) drug therapy; Z95.0 Presence of cardiac pacemaker; Z98.890 Other specified postprocedural states; X58.XXXA Exposure to other specified factors, initial encounter; Y93.89 Activity, other specified; Y92.89 Other specified places as the place of occurrence of the external cause; Y99.8 Other external cause status
CPT/HCPCS: 99281

== ENCOUNTER → 2024-02-17 | Outpatient (CLI) | payer OTHER | END | disposition home or self-care (01) | LOC: SHCH 08:52 | PROVIDERS: ATTEND Internal Medicine Cardiovascular Disease | DX: I25.10 Atherosclerotic heart disease of native coronary artery without angina pectoris (principal); I10 Essential (primary) hypertension | CPT/HCPCS: 78452; 96374; 93017; A9500 ×2 ==

== ENCOUNTER → 2024-04-27 | Outpatient (CLI) | payer OTHER ==
[~2024-04-27] MED LIST changes: +IOHEXOL 350 MG/ML 100ML INFUS..BTL IV ONE
== END | disposition home or self-care (01) ==
LOC: RAH 10:25
PROVIDERS: ATTEND Internal Medicine Cardiovascular Disease
DX: I25.10 Atherosclerotic heart disease of native coronary artery without angina pectoris (principal); M47.815 Spondylosis without myelopathy or radiculopathy, thoracolumbar region
CPT/HCPCS: 75574; Q9967